=== PATIENT | female | born 1935 | race Asian ===

== ENCOUNTER 2018-01-25 15:40 | Emergency (ER) | payer MEDICARE, MEDICAID ==
[2018-01-25 17:44] VITALS: BP 111/74
== END 2018-01-25 17:44 | disposition home or self-care (01) ==
LOC: ED 15:40
DX: G30.9 Alzheimer's disease, unspecified (principal); R62.7 Adult failure to thrive; R11.10 Vomiting, unspecified
CPT/HCPCS: 82962